=== PATIENT | female | born 1970 | race Caucasian/White ===

== ENCOUNTER 2018-08-31 08:03 | Day surgery (SDC) | payer SELFPAY ==
[~2018-08-31] VITALS: Ht 165.1 cm; Wt 74.4 kg
[~2018-08-31 08:03] MED LIST: PROTONIX40 M2 PO
[2018-08-31 10:21] VITALS: BP 104/58
== END 2018-08-31 10:05 | disposition home or self-care (01) | DRG 392 ==
LOC: ENDO 08:03 → PO 11:30 → ORM 11:30 → ENDO 11:30
PROVIDERS: ATTEND Surgery
PROC: 0DJ08ZZ Inspection of Upper Intestinal Tract, Via Natural or Artificial Opening Endoscopic (ICD-10-PCS; principal; 2018-08-31)
DX: K21.9 Gastro-esophageal reflux disease without esophagitis (principal); K31.1 Adult hypertrophic pyloric stenosis; Z87.11 Personal history of peptic ulcer disease